=== PATIENT | female | born 1955 | race Caucasian/White ===

== ENCOUNTER 2018-03-09 05:52 | Emergency (ER) | payer OTHER ==
[2018-03-09 06:09] VITALS: BMI 27.4
--- NOTE | 2018-03-09 07:10 | PDOC ---
History of Present Illness - General History Source: Patient Exam Limitations: No Limitations - History of Present Illness Initial Comments: 03/09/18 07:36 The patient is a 62 y.o. F with a significant past medical history of hyperlipidemia and spinal stenosis, who presents with one week of intermittent left flank and left upper quadrant pain. She states the pain initiates near her left flank and radiates to her left upper to middle quadrant. She reports the pain as a burning sensation. She reports noticing exacerbation of pain in the morning after eating oatmeal. She states she also had diarrhea for about 2 days , but states the stool is soft but formed today when compared to her loose stool yesterday. She reports having a normal colonoscopy about 2 weeks ago. She also states her daily diet is bland with having eaten only mashed potatoes for dinner last night. Secondarily, she states she has had UTIs in the past which presented as similar burning to her upper abdominal quadrants, but denies any current urinary symptoms. She denies chest pain, shortness of breath, headache and dizziness. She denies fever, chills, nausea, vomit, and constipation. She denies dysuria, frequency, urgency and hematuria. Allergies: meloxicam Past surgical history: none Social history: denies ETOH and tobacco use. PCP - Dr. Gray <Kari Shane - Last Filed: 03/09/18 08:00> <Hieu Vincent - Last Filed: 03/09/18 10:55> - General Chief Complaint: Pain Stated Complaint: ABD PAIN Time Seen by Provider: 03/09/18 07:10 Past History <Kari Shane - Last Filed: 03/09/18 08:00> - Past Medical History COPD: No Other medical history: Chronic back pain - Suicide/Smoking/Psychosocial Hx Smoking History: Never smoked Have you smoked in the past 12 months: No Information on smoking cessation initiated: No Hx Alcohol Use: No Drug/Substance Use Hx: No Substance Use Type: None <Hieu Vincent - Last Filed: 03/09/18 10:55> - Past Medical History Allergies/Adverse Reactions: Allergies Allergy/AdvReac Type Severity Reaction Status Date / Time meloxicam Allergy Verified 03/09/18 06:05 shellfish derived Allergy Verified 03/09/18 06:05 Home Medications: Ambulatory Orders Aspirin 81 mg PO DAILY 03/09/18 Review of Systems - Review of Systems Able to Perform ROS?: Yes Comments:: 03/09/18 07:50 CONSTITUTIONAL: No fever, no chills, no fatigue EYES: No visual changes ENT: No ear pain, no sore throat CARDIOVASCULAR: No chest pain, no palpitations RESPIRATORY: No cough, no SOB GI: (+) left upper abdominal pain, loose stool, no nausea, no vomiting, no constipation GENITOURINARY: No dysuria, no frequency, no hematuria MUSKULOSKELETAL: No backpain, no joint pain, no myalgias SKIN: No rash NEURO: No headache <Kari Shane - Last Filed: 03/09/18 08:00> *Physical Exam - Vital Signs Last Vital Signs Temp Pulse Resp BP Pulse Ox 97.6 F 102 H 18 144/75 98 03/09/18 06:05 03/09/18 06:05 03/09/18 06:05 03/09/18 06:05 03/09/18 06:05 - Physical Exam Comments: 03/09/18 07:50 CONSTITUTIONAL: Well-appearing; well-nourished; in no apparent distress HEAD: Normocephalic; atraumatic EYES: PERRL; EOM intact ENMT: External appears normal; normal oropharynx NECK: Supple; non-tender; no cervical lymphadenopathy CARD: Normal S1, S2; no murmurs, rubs, or gallops RESP: Normal chest excursion with respiration; breath sounds clear and equal bilaterally; no wheezes, rhonchi, or rales ABD: (+)LUQ tenderness on plapation. No CVA tenderness bilaterally. Soft, non- distended; no palpable organomegaly, no palpable hernias EXT: Normal ROM in all four extremities; non-tender to palpation; distal pulses intact SKIN: Warm, dry, no rash NEURO: No focal neurological deficiencies. <Kari Shane - Last Filed: 03/09/18 08:00> - Vital Signs Last Vital Signs Temp Pulse Resp BP Pulse Ox 97.6 F 102 H 18 144/75 98 03/09/18 06:05 03/09/18 06:05 03/09/18 06:05 03/09/18 06:05 03/09/18 06:05 <Hieu Vincent - Last Filed: 03/09/18 10:55> Heart Score/ECG Review - History History: Slightly suspicious - Electrocardiogram EKG: Normal - Age Age: 45-65 - Risk Factors Risk Factors Heart Score: Yes Hx Hypercholesterolemia Based on the list above the patient has:: 1-2 risk factors - Troponin Troponin: </= normal limit - Score Heart Score - Total: 2 - ECG Intrepretation Comment:: 03/09/18 10:51 82, nsr, axis-nl, axis-nl, no st-t abn, joy <Hieu Vincent - Last Filed: 03/09/18 10:55> ED Treatment Course - LABORATORY CBC & Chemistry Diagram: 03/09/18 07:41 03/09/18 07:41 <Kari Shane - Last Filed: 03/09/18 08:00> - LABORATORY CBC & Chemistry Diagram: 03/09/18 07:41 03/09/18 07:41 <Hieu Vincent - Last Filed: 03/09/18 10:55> Medical Decision Making - Medical Decision Making 03/09/18 08:30 Patient is a 62-year-old female with history of hypercholesterolemia and lumbar stenosis who presents with atraumatic left upper quadrant pain/burning. Differential diagnoses includes gastritis versus pancreatitis versus ACS versus nephrolithiasis. We'll obtain CBC/CMP/lipase/UA. We'll administer GI cocktail. EKG shows no evidence of acute ischemia, minimal ST segment depressions of less than 1 mm are present in V6 only (unclear clinical significance). Will reassess. 03/09/18 08:46 Patient with resolved pain. Exam reveals no focal tenderness. Will obtain repeat cardiac enzymes at 2 hours with repeat EKG. If negative, will discharge with outpatient follow-up. 03/09/18 10:54 repeat ekg is wnl. 2nd set of cardiac enzymes is negative. acs/pe/ aortic disection are highly unlikly. will d/c with gi and pmd f/u. <Hieu Vincent - Last Filed: 03/09/18 10:55> *DC/Admit/Observation/Transfer - Attestations Scribe Attestion: 03/09/18 07:51 Documentation prepared by Kari Shane, acting as medical records director for Hieu Vincent MD <Kari Shane - Last Filed: 03/09/18 08:00> - Attestations Physician Attestion: 03/09/18 08:30 The documentation was prepared by the scribe under my direct supervision. I have reviewed the documentation which correctly represents the findings, medical decision-making and critical action taken by me. <Hieu Vincent - Last Filed: 03/09/18 10:55> Diagnosis at time of Disposition: Abdominal pain Qualifiers: Abdominal location: left upper quadrant Qualified Code(s): R10.12 - Left upper quadrant pain - Discharge Dispostion Disposition: HOME Condition at time of disposition: Stable - Referrals Referrals: Jalyn Parrish [Primary Care Provider] - - Patient Instructions Printed Discharge Instructions: DI for Abdominal Pain-Adult Additional Instructions: Take Pepcid-20 were grams twice daily for the next 5 days. Follow-up with GI and primary care physician. Return immediately for chest pain or worsening symptoms. - Post Discharge Activity
[2018-03-09] MEDS ORDERED: RANITIDINE HCL 150 MG TABLET (FP) PO ONE (07:34)
[2018-03-09] MEDS ORDERED: MAG HYDROX/AL HYDROX/SIMETH -MYLANTA- ORAL SUSPENSION PO ONE (07:34)
[2018-03-09 07:44] LABS: URINE APPEARANCE CLEAR; URINE BILIRUBIN NEGATIVE (<2.0 mg/dL); URINE BLOOD 1+ (NEGATIVE); URINE COLOR YELLOW; URINE GLUCOSE (UA) NEGATIVE (NEGATIVE); URINE KETONE NEGATIVE (NEGATIVE); URINE LEUK ESTERASE NEGATIVE (NEGATIVE); URINE NITRITE NEGATIVE (NEGATIVE); URINE PROTEIN NEGATIVE (NEGATIVE); URINE UROBILINOGEN NEGATIVE mg/dL (0.2-1.0)
[2018-03-09] MEDS ORDERED: RANITIDINE HCL 150 MG TABLET (FP) ONE (07:49)
[2018-03-09] MEDS ORDERED: MAG HYDROX/AL HYDROX/SIMETH 30 ML UNIT-DOSE CUP ONE (07:49)
[2018-03-09 07:54] LABS: EPI CELLS RARE /HPF (FEW); URINE BACTERIA RARE /hpf (NONE SEEN); URINE HYALINE CAST 1 /lpf; URINE MUCUS RARE
[2018-03-09 07:55] LABS: BASO % 0.2 % (0-2.0); EOS % 0.6 % (0-4.5); HEMATOCRIT 36.6 % (32.4-45.2); HEMOGLOBIN 12.7 GM/dL (10.7-15.3); LYMPH % 4.7 % (8-40); MCHC 34.7 g/dl (32.0-36.0); MEAN CELL VOLUME 86.4 fl (80-96); MEAN PLT VOLUME 8.4 fl (7.5-11.1); MONO % 5.5 % (3.8-10.2); PLATELET COUNT 187 K/MM3 (134-434); RBC 4.23 M/mm3 (3.60-5.2); RDW 12.5 % (11.6-15.6); WHITE BLOOD COUNT 9.6 K/mm3 (4.0-10.0)
[2018-03-09 08:23] LABS: ALBUMIN 3.6 g/dl (3.4-5.0); ANION GAP 8 (8-16); BILIRUBIN,TOTAL 0.7 mg/dL (0.2-1.0); BLOOD UREA NITROGEN 18 mg/dL (7-18); CALCIUM 8.4 mg/dL (8.5-10.1); CHLORIDE 109 mmol/L (98-107); CO2 23 mmol/L (21-32); CREATININE 0.5 mg/dL (0.55-1.02); GLUCOSE,RANDOM 107 mg/dL (74-106); LIPASE 83 U/L (73-393); POTASSIUM 3.8 mmol/L (3.5-5.1); SGOT/AST 44 U/L (15-37); SGPT/ALT 42 U/L (12-78); SODIUM 140 mmol/L (136-145); TOT PROT 6.7 g/dl (6.4-8.2)
[2018-03-09 08:26] LABS: ALK PHOS 76 U/L (45-117)
--- NOTE | 2018-03-09 11:44 | EKG ---
Test Reason : Blood Pressure : / mmHG Vent. Rate : 091 BPM Atrial Rate : 091 BPM P-R Int : 184 ms QRS Dur : 092 ms QT Int : 344 ms P-R-T Axes : 045 029 006 degrees QTc Int : 423 ms SINUS RHYTHM WITH OCCASIONAL PREMATURE VENTRICULAR COMPLEXES POSSIBLE LEFT ATRIAL ENLARGEMENT NONSPECIFIC ST ABNORMALITY ABNORMAL ECG WHEN COMPARED WITH ECG OF 14-AUG-2015 19:55, PREMATURE VENTRICULAR COMPLEXES ARE NOW PRESENT T WAVE INVERSION NOW EVIDENT IN INFERIOR LEADS Confirmed by HOPE BOCANEGRA, CHERIE ([id number]) on 03/09/2018 11:44:38 AM Referred By: Confirmed By:CHERIE ARNETT MD
--- NOTE | 2018-03-09 11:46 | EKG ---
Test Reason : Blood Pressure : / mmHG Vent. Rate : 082 BPM Atrial Rate : 082 BPM P-R Int : 194 ms QRS Dur : 086 ms QT Int : 390 ms P-R-T Axes : 044 011 021 degrees QTc Int : 455 ms NORMAL SINUS RHYTHM POSSIBLE LEFT ATRIAL ENLARGEMENT BORDERLINE ECG WHEN COMPARED WITH ECG OF 09-MAR-2018 07:19, PREMATURE VENTRICULAR COMPLEXES ARE NO LONGER PRESENT Confirmed by HOPE BOCANEGRA, CHERIE ([id number]) on 03/09/2018 11:45:33 AM Referred By: Confirmed By:CHERIE ARNETT MD
[2018-03-09 12:49] VITALS: BP 133/65; PULSE 98; TEMP 98.2
== END 2018-03-09 12:50 | disposition home or self-care (01) ==
LOC: JER 05:52
DX: R10.12 Left upper quadrant pain (principal); E78.00 Pure hypercholesterolemia, unspecified
CPT/HCPCS: 36415; 80053; 81003; 81015; 82550; 83690; 84484; 85025; 87086; 93005; 93010; 99284-25

== ENCOUNTER 2018-07-26 19:04 | Emergency (ER) | payer OTHER ==
[2018-07-26 19:13] VITALS: TEMP 98.8; BMI 28.4
--- NOTE | 2018-07-26 19:23 | PDOC ---
Rapid Medical Evaluation Chief Complaint: Pain, Acute Medical Evaluation: Allergies Allergy/AdvReac Type Severity Reaction Status Date / Time shellfish derived Allergy Verified 07/26/18 19:14 Vital Signs Temp Pulse Resp BP Pulse Ox 98.8 F 90 16 144/86 100 07/26/18 19:07 07/26/18 19:07 07/26/18 19:07 07/26/18 19:07 07/26/18 19:07 07/26/18 19:20 I have performed a brief in-person evaluation of this patient. The patient presents with a chief complaint of: R flank pain since today, h/o renal stones, sent by PCP Pertinent physical exam findings: + R CVA tenderness, abd soft, ND I have ordered the following: labs, UA The patient will proceed to the ED for further evaluation. Discharge Disposition - Diagnosis Flank pain - Referrals Referrals: Jalyn Parrish [Primary Care Provider] - - Patient Instructions - Post Discharge Activity
[2018-07-26 21:41] LABS: HEMATOCRIT 40.2 % (32.4-45.2); HEMOGLOBIN 13.7 GM/dL (10.7-15.3); MCH 29.7 pg (25.7-33.7); MCHC 34.2 g/dl (32.0-36.0); MEAN CELL VOLUME 86.7 fl (80-96); MEAN PLT VOLUME 8.2 fl (7.5-11.1); PLATELET COUNT 290 K/MM3 (134-434); RBC 4.63 M/mm3 (3.60-5.2); RDW 12.8 % (11.6-15.6); WHITE BLOOD COUNT 7.9 K/mm3 (4.0-10.0)
[2018-07-26 21:43] LABS: URINE APPEARANCE CLEAR; URINE BILIRUBIN NEGATIVE (<2.0 mg/dL); URINE COLOR STRAW; URINE GLUCOSE (UA) NEGATIVE (NEGATIVE); URINE KETONE NEGATIVE (NEGATIVE); URINE NITRITE NEGATIVE (NEGATIVE); URINE PROTEIN NEGATIVE (NEGATIVE); URINE UROBILINOGEN NEGATIVE mg/dL (0.2-1.0)
[2018-07-26 21:49] LABS: URINE LEUK ESTERASE 1+ (NEGATIVE)
[2018-07-26 22:05] LABS: ANION GAP 10 MMOL/L (8-16); BLOOD UREA NITROGEN 23 mg/dL (7-18); CALCIUM 9.5 mg/dL (8.5-10.1); CHLORIDE 105 mmol/L (98-107); CO2 26 mmol/L (21-32); CREATININE 0.7 mg/dL (0.55-1.02); GLUCOSE,RANDOM 103 mg/dL (74-106); POTASSIUM 4.1 mmol/L (3.5-5.1); SODIUM 141 mmol/L (136-145)
[2018-07-26] MEDS ORDERED: KETOROLAC TROMETHAMINE 15 MG/ML VIAL IVPUSH ONE (22:49)
--- NOTE | 2018-07-26 22:55 | PDOC ---
History of Present Illness <Toña Nazario - Last Filed: 07/26/18 23:34> - General History Source: Patient Exam Limitations: No Limitations - History of Present Illness Initial Comments: 07/26/18 23:35 The patient is a 60 year old female, with a significant past medical history of sciatica, H. pylori, UTIs, hypercholesterolemia, anxiety, and Kidney stones, who presents to the emergency department with a couple of days with right flank pain. She states she went to an urgent care earlier today where her urine was tested which was suggestive of kidney stones. She states the pain radiates from her right flank to her right groin. She states this feels just like her prior kidney stone. She states she was nauseous in route to the ED but is unsure if the nausea was from pain or anxiety. She denies any numbness/weakness. She denies chest pain, shortness of breath and headache. She denies fever, chills, vomit, diarrhea and constipation. She denies dysuria, frequency, urgency and hematuria. Allergies: Meloxicam, shellfish Past surgical history: Hysterectomy, tonsillitis, right adductor debridement? May 2018 Social history: She denies alcohol, tobacco and drug use. PCP - Dr. Jalyn Parrish <Kari Shane - Last Filed: 07/26/18 23:36> - General Chief Complaint: Pain, Acute Stated Complaint: KIDNEY STONE Time Seen by Provider: 07/26/18 21:25 Past History - Past Medical History COPD: No Hypercholesterolemia: Yes Psychiatric Problems: Yes (anxiety) - Immunization History Immunization Up to Date: Yes - Suicide/Smoking/Psychosocial Hx Smoking History: Never smoked Have you smoked in the past 12 months: No Information on smoking cessation initiated: No Hx Alcohol Use: No Drug/Substance Use Hx: No Substance Use Type: None <Toña Nazario - Last Filed: 07/26/18 23:34> <Kari Shane - Last Filed: 07/26/18 23:36> - Past Medical History Allergies/Adverse Reactions: Allergies Allergy/AdvReac Type Severity Reaction Status Date / Time shellfish derived Allergy Verified 07/26/18 19:14 Home Medications: Ambulatory Orders Aspirin 81 mg PO DAILY 03/09/18 Sulfamethoxazole/Trimethoprim [Bactrim Ds Tablet] 1 each PO BID #10 tablet 07/26 Review of Systems - Review of Systems Able to Perform ROS?: Yes Comments:: 07/26/18 23:35 CONSTITUTIONAL: Absent: fever, no chills, no fatigue EYES: Absent: visual changes ENT: Absent: ear pain, no sore throat CARDIOVASCULAR: Absent: chest pain, no palpitations RESPIRATORY: Absent: cough, no SOB GI: Absent: abdominal pain, no nausea, no vomiting, no constipation, no diarrhea GENITOURINARY: Absent: dysuria, no frequency, no hematuria MUSCULOSKELETAL: (+) right flank pain. Absent: back pain, no arthralgia, no myalgia SKIN: Absent: rash NEURO: Absent: headache <Kari Shane - Last Filed: 07/26/18 23:36> *Physical Exam - Vital Signs Last Vital Signs Temp Pulse Resp BP Pulse Ox 98.8 F 90 16 144/86 100 07/26/18 19:07 07/26/18 19:07 07/26/18 19:07 07/26/18 19:07 07/26/18 19:07 <Toña Nazario - Last Filed: 07/26/18 23:34> - Vital Signs Last Vital Signs Temp Pulse Resp BP Pulse Ox 98.8 F 90 16 144/86 100 07/26/18 19:07 07/26/18 19:07 07/26/18 19:07 07/26/18 19:07 07/26/18 19:07 - Physical Exam Comments: 07/26/18 23:36 GENERAL: Well-appearing, well-nourished. No apparent distress. HEENT: Normocephalic, atraumatic. PERRL, EOM intact. CARDIOVASCULAR: Normal S1, S2. Regular rate and rhythm. PULMONARY: Clear to auscultation bilaterally. ABDOMEN: Soft, non-distended, non-tender. EXTREMITIES: Normal ROM in all four extremities. No gross deformities. MSK: (+) Right CVA ttp SKIN: Warm, dry. No rash NEUROLOGICAL: No focal neurological deficits. <Kari Shane - Last Filed: 07/26/18 23:36> ED Treatment Course - LABORATORY CBC & Chemistry Diagram: 07/26/18 21:25 07/26/18 21:25 - ADDITIONAL ORDERS Additional order review: Laboratory Results 07/26/18 07/26/18 21:25 21:25 Sodium 141 Potassium 4.1 Chloride 105 Carbon Dioxide 26 Anion Gap 10 BUN 23 H Creatinine 0.7 Creat Clearance w eGFR > 60 Random Glucose 103 Calcium 9.5 Urine Color Straw Urine Appearance Clear Urine pH 6.0 Ur Specific Delta 1.008 Urine Protein Negative Urine Glucose (UA) Negative Urine Ketones Negative Urine Blood 1+ H Urine Nitrite Negative Urine Bilirubin Negative Urine Urobilinogen Negative Ur Leukocyte Esterase 1+ H Urine WBC (Auto) 4 Urine RBC (Auto) <1 07/26/18 21:25 RBC 4.63 MCV 86.7 MCHC 34.2 RDW 12.8 MPV 8.2 - RADIOLOGY Radiology Studies Ordered: Category Date Time Status ABDOMEN & PELVIS CT W/O CONTR [CT] Stat CT Scan 07/26/18 22:07 Completed <Toña Nazario - Last Filed: 07/26/18 23:34> - LABORATORY CBC & Chemistry Diagram: 07/26/18 21:25 07/26/18 21:25 - ADDITIONAL ORDERS Additional order review: Laboratory Results 07/26/18 07/26/18 21:25 21:25 Sodium 141 Potassium 4.1 Chloride 105 Carbon Dioxide 26 Anion Gap 10 BUN 23 H Creatinine 0.7 Creat Clearance w eGFR > 60 Random Glucose 103 Calcium 9.5 Urine Color Straw Urine Appearance Clear Urine pH 6.0 Ur Specific Delta 1.008 Urine Protein Negative Urine Glucose (UA) Negative Urine Ketones Negative Urine Blood 1+ H Urine Nitrite Negative Urine Bilirubin Negative Urine Urobilinogen Negative Ur Leukocyte Esterase 1+ H Urine WBC (Auto) 4 Urine RBC (Auto) <1 07/26/18 21:25 RBC 4.63 MCV 86.7 MCHC 34.2 RDW 12.8 MPV 8.2 - Medications Given in the ED: ED Medications Discontinued Medications Generic Name Dose Route Start Last Admin Trade Name Freq PRN Reason Stop Dose Admin Ketorolac Tromethamine 15 mg 07/26/18 22:49 07/26/18 23:08 Toradol Injection - IVPUSH 07/26/18 22:50 15 mg ONCE ONE Administration <Kari Shane - Last Filed: 07/26/18 23:36> Medical Decision Making - Medical Decision Making 07/26/18 22:59 CT scan abdomen and pelvis without contrast does not show any acute pathology. There is no evidence of any kidney stones, ureteral obstruction, no masses, no fluid obstruction, no fluid collections and no unusual lymphadenopathy UA shows 4 WBCs and + blood Patient denies fever or chills or vomiting. She has no shortness of breath or chest pain. The pain is low right sided below her hip and above her buttocks 07/26/18 23:01 -she has no dizziness,no shortness of breath and no scapular or arm pain 07/26/18 23:01 imp possibly passed a stone, mild cystitis plan placed on antibiotics,d/c home <Toña Nazario - Last Filed: 07/26/18 23:34> *DC/Admit/Observation/Transfer <Toña Nazario - Last Filed: 07/26/18 23:34> - Attestations Scribe Attestion: 07/26/18 23:36 Documentation prepared by Kari Shane, acting as medical coding manager for Toña Nazario MD <Kari Shane - Last Filed: 07/26/18 23:36> Diagnosis at time of Disposition: Flank pain UTI (urinary tract infection) Qualifiers: Urinary tract infection type: site unspecified Hematuria presence: without hematuria Qualified Code(s): N39.0 - Urinary tract infection, site not specified - Discharge Dispostion Disposition: HOME Condition at time of disposition: Stable - Prescriptions Prescriptions: Sulfamethoxazole/Trimethoprim [Bactrim Ds Tablet] 1 each PO BID #10 tablet - Referrals Referrals: Jalyn Parrish [Primary Care Provider] - - Patient Instructions Printed Discharge Instructions: DI for Urinary Tract Infection (UTI), DI for Flank Pain Additional Instructions: 1-please followup with your doctor this week 2-picker tender your antibiotics and take them as directed 3-return for worsening symptoms - Post Discharge Activity
[2018-07-26] MEDS ORDERED: KETOROLAC TROMETHAMINE 15 MG/ML VIAL ONE (23:04)
[2018-07-26 23:37] VITALS: BP 138/76; PULSE 78
== END 2018-07-26 23:37 | disposition home or self-care (01) ==
LOC: JER 19:04
PROC: 3E0233Z Introduction of Anti-inflammatory into Muscle, Percutaneous Approach (ICD-10-PCS; principal; 2018-07-26)
DX: R10.31 Right lower quadrant pain (principal)
CPT/HCPCS: 36415; 74176-TC; 80048; 81003; 81015; 85027; 99282-25

== ENCOUNTER 2018-09-23 09:22 | Emergency (ER) | payer OTHER ==
--- NOTE | 2018-09-23 09:35 | PDOC ---
History of Present Illness - General Chief Complaint: Constipation Stated Complaint: CONSTIPATION Time Seen by Provider: 09/23/18 09:32 History Source: Patient Exam Limitations: No Limitations - History of Present Illness Initial Comments: 09/23/18 09:33 PMHX: as in HPI PSHX: see below Meds: see below Allergies: shellfish Tob: none Etoh: none Rec drugs: none Past History - Past Medical History Allergies/Adverse Reactions: Allergies Allergy/AdvReac Type Severity Reaction Status Date / Time shellfish derived Allergy Verified 07/26/18 19:14 Home Medications: Ambulatory Orders Acetaminophen [Tylenol Extra Strength] 1,000 mg PO DAILY PRN 09/23/18 Bisacodyl [Dulcolax] 10 mg PO ONCE 09/23/18 Linaclotide [Linzess] 145 mcg PO DAILY PRN 09/23/18 Sodium Phosphate,Young-Dibasic [Fleet Enema] 133 ml RC ONCE 09/23/18 COPD: No HTN: Yes Hypercholesterolemia: Yes Psychiatric Problems: Yes (anxiety) - Immunization History Immunization Up to Date: Yes - Suicide/Smoking/Psychosocial Hx Smoking History: Never smoked Have you smoked in the past 12 months: No Hx Alcohol Use: No Drug/Substance Use Hx: No Substance Use Type: None *Physical Exam - Physical Exam Comments: 09/23/18 09:34 GENERAL: Awake, alert, and fully oriented, in no acute distress HEAD: No signs of trauma, normocephalic, atraumatic EYES: PERRLA, EOMI, sclera anicteric, conjunctiva clear ENT: Auricles normal inspection, hearing grossly normal, nares patent, oropharynx clear without exudates. Moist mucosa NECK: Normal ROM, supple, no lymphadenopathy, JVD, or masses LUNGS: No distress, speaks full sentences, clear to auscultation bilaterally HEART: Regular rate and rhythm, normal S1 and S2, no murmurs, rubs or gallops, peripheral pulses normal and equal bilaterally. ABDOMEN: Soft, nontender, normoactive bowel sounds. No guarding, no rebound. No masses EXTREMITIES : Normal inspection, Normal range of motion, no edema. No clubbing or cyanosis. NEUROLOGICAL: Cranial nerves II through XII grossly intact. Normal speech, normal gait, no focal sensorimotor deficits SKIN: Warm, Dry, normal turgor, no rashes or lesions noted *DC/Admit/Observation/Transfer - Discharge Dispostion Condition at time of disposition: Good - Referrals Referrals: Jalyn Parrish [Primary Care Provider] - - Patient Instructions - Post Discharge Activity
[2018-09-23 09:41] VITALS: BP 146/95; PULSE 89; TEMP 98.1; BMI 26.9
--- NOTE | 2018-09-23 10:10 | PDOC ---
History of Present Illness - General Chief Complaint: Constipation Stated Complaint: CONSTIPATION Time Seen by Provider: 09/23/18 09:32 History Source: Patient Exam Limitations: No Limitations - History of Present Illness Initial Comments: 09/23/18 10:04 63 yo F with h/;o prior thyroid disease, nodule, here today c/o 1 month of constipation. take miralax twice daily . today had small bowel movement after taking dulcolax. has loose watery stool following here in ed after arriving. follows with dr. Landers [facility]1 yr ago had normal colonoscopy. also c/ o hemorrhoids. no fc no abd pain. no other comlaints. Past History - Past Medical History Allergies/Adverse Reactions: Allergies Allergy/AdvReac Type Severity Reaction Status Date / Time shellfish derived Allergy Verified 07/26/18 19:14 Home Medications: Ambulatory Orders Acetaminophen [Tylenol Extra Strength] 1,000 mg PO DAILY PRN 09/23/18 Bisacodyl [Dulcolax] 10 mg PO ONCE 09/23/18 Linaclotide [Linzess] 145 mcg PO DAILY PRN 09/23/18 Sodium Phosphate,[place]-Dibasic [Fleet Enema] 133 ml RC ONCE 09/23/18 COPD: No GI Disorders: Yes HTN: Yes Hypercholesterolemia: Yes Psychiatric Problems: Yes (anxiety) Other medical history: TINNITUS, LUMBAR STENOSIS - Immunization History Immunization Up to Date: Yes - Suicide/Smoking/Psychosocial Hx Smoking History: Never smoked Have you smoked in the past 12 months: No Hx Alcohol Use: No Drug/Substance Use Hx: No Substance Use Type: None Review of Systems - Review of Systems Constitutional: No: Chills, Diaphoresis, Weight Stable Respiratory: No: Cough, Orthopnea Cardiac (ROS): No: Chest Pain, Edema ABD/GI: Yes: Constipated. No: Abdominal Distended : No: Burning, Dysuria, Discharge Neurological: No: Headache Endocrine: No: Excessive Sweating Hematologic/Lymphatic: No: Anemia All Other Systems: Reviewed and Negative *Physical Exam - Vital Signs Last Vital Signs Temp Pulse Resp BP Pulse Ox 98.1 F 89 16 146/95 98 09/23/18 09:23 09/23/18 09:23 09/23/18 09:23 09/23/18 09:23 09/23/18 09:23 - Physical Exam Comments: 09/23/18 10:06 awake alert lungs clear bilaterally heart rrr no mrg abd soft nt nd. abd soft nt nd. no palp masses. rectal, no large stool in vault. palp internal nonthrombosed hemorrhoid. skin warm and dry. no rash. Medical Decision Making - Medical Decision Making 09/23/18 10:[address] pt currently with large bm in ed. will add tsh and labs r/o electrolyte dysfuction. likely needs outpt followup with gi. and appears constipation resolved with bm in ed. offered enema, pt declined. *DC/Admit/Observation/Transfer Diagnosis at time of Disposition: Constipation - Discharge Dispostion Disposition: HOME Condition at time of disposition: Improved - Referrals Referrals: Jalyn Parrish [Primary Care Provider] - - Patient Instructions Printed Discharge Instructions: Constipation Additional Instructions: you should eat plenty of vegetable and get daily exercise as this can help with constipation. drink plenty of liquids. follow up with DR Weinberg, your cleaner furniture. call to schedule. you should also follow up with your primary Doctor Dr. Parrish. return for any problems or concerns. you can use over the counter creams for your hemorrhoids such as preparation H, and soak in a sitz bath to ease itching or discomfort. you can also incrase your miralax to three times daily. - Post Discharge Activity
[2018-09-23 10:29] LABS: BASO % 1.1 % (0-2.0); EOS % 0.8 % (0-4.5); HEMATOCRIT 40.9 % (32.4-45.2); HEMOGLOBIN 13.5 GM/dl (10.7-15.3); LYMPH % 29.4 % (8-40); MCH 29.1 pg (25.7-33.7); MEAN CELL VOLUME 88.4 fl (80-96); MEAN PLT VOLUME 8.2 fl (7.5-11.1); MONO % 7.6 % (3.8-10.2); NEUT % 61.1 % (42.8-82.8); PLATELET COUNT 282 K/MM3 (134-434); RBC 4.63 M/mm3 (3.60-5.2); RDW 11.9 % (11.6-15.6); WHITE BLOOD COUNT 3.6 K/mm3 (4.0-10.8)
[2018-09-23 10:55] LABS: ALBUMIN 4.4 g/dl (3.5-5.0); ALK PHOS 48 U/L (32-92); ANION GAP 7 MMOL/L (8-16); BILIRUBIN,TOTAL 0.7 mg/dl (0.2-1.0); BLOOD UREA NITROGEN 11 mg/dl (7-18); CALCIUM 9.6 mg/dl (8.4-10.2); CHLORIDE 106 mmol/L (98-107); CO2 25 mmol/L (22-28); CREATININE 0.6 mg/dl (0.6-1.3); GLUCOSE,RANDOM 115 mg/dl (74-106); POTASSIUM 4.4 mmol/L (3.5-5.1); SGOT/AST 24 U/L (10-42); SGPT/ALT 25 U/L (10-40); SODIUM 138 mmol/L (136-145); TOT PROT 7.3 g/dl (6.4-8.3)
== END 2018-09-23 11:14 | disposition home or self-care (01) ==
LOC: FER 09:22
DX: K59.00 Constipation, unspecified (principal); E07.9 Disorder of thyroid, unspecified; I10 Essential (primary) hypertension; F41.9 Anxiety disorder, unspecified; E78.00 Pure hypercholesterolemia, unspecified
CPT/HCPCS: 36415; 80053; 84443; 85025; 99282-25

== ENCOUNTER 2018-10-21 14:11 | Emergency (ER) | payer OTHER ==
[2018-10-21 14:39] VITALS: TEMP 98.3; BMI 26.4
--- NOTE | 2018-10-21 14:40 | PDOC ---
Rapid Medical Evaluation Time Seen by Provider: 10/21/18 14:37 Medical Evaluation: Allergies Allergy/AdvReac Type Severity Reaction Status Date / Time shellfish derived Allergy Verified 10/21/18 14:35 10/21/18 14:37 I have performed a brief in-person evaluation of this patient. The patient presents with a chief complaint of:Worsening RUQ pain x 2 weeks w/ nausea. Denies pmhx but currently being w/u for possible "tumor in my right ear ". Pertinent physical exam findings: Stable w/ +ttp to RUQ I have ordered the following:labs The patient will proceed to the ED for further evaluation. Discharge Disposition - Diagnosis RUQ pain - Referrals - Patient Instructions - Post Discharge Activity
--- NOTE | 2018-10-21 15:04 | PDOC ---
History of Present Illness - General Chief Complaint: Pain, Acute Stated Complaint: RT SIDE PAIN Time Seen by Provider: 10/21/18 14:37 - History of Present Illness Initial Comments: 63 year old female with PMH of lumbar stenosis presenting with acute on chronic right flank/ upper quadrant pain for the past three weeks that got much worse last night. Patient states that she has had this pain for three weeks and originally attributed it to the lumbar stenosis but started to realize that it seems more abdominal. Admits to nausea, and worsening pain with food but denies vomiting, diarrhea, constipation, chest pain, SOB, or other symptoms. 10/21/18 15:42 Past History - Past Medical History Allergies/Adverse Reactions: Allergies Allergy/AdvReac Type Severity Reaction Status Date / Time shellfish derived Allergy Verified 10/21/18 14:35 Home Medications: Ambulatory Orders Mag Hydrox/Al Hydrox/Simeth [Mylanta Suspension -] 30 ml PO Q6H #1 bottle COPD: No GI Disorders: Yes HTN: Yes Hypercholesterolemia: Yes Psychiatric Problems: Yes (anxiety) Other medical history: chr back pain, - Immunization History Immunization Up to Date: Yes - Suicide/Smoking/Psychosocial Hx Smoking History: Never smoked Have you smoked in the past 12 months: No Hx Alcohol Use: No Drug/Substance Use Hx: No Substance Use Type: None Review of Systems - Review of Systems Constitutional: No: Chills, Diaphoresis, Fever HEENTM: No: Blurred Vision, Tearing, Other Respiratory: No: Cough, Orthopnea Cardiac (ROS): No: Chest Pain, Edema, Lightheadedness ABD/GI: Yes: Constipated, Nausea, Poor Appetite. No: Diarrhea, Vomiting : No: Burning, Dysuria, Discharge Musculoskeletal: Yes: Back Pain. No: Joint Pain Integumentary: No: Bruising, Erythema, Flushing, Lesions Neurological: No: Headache, Numbness, Paresthesia Psychiatric: No: Anxiety, Depression Endocrine: No: Excessive Sweating, Flushing Hematologic/Lymphatic: No: Anemia, Blood Clots, Easy Bleeding *Physical Exam - Vital Signs Last Vital Signs Temp Pulse Resp BP Pulse Ox 98.3 F 80 18 147/79 99 10/21/18 14:35 10/21/18 14:35 10/21/18 14:35 10/21/18 14:35 10/21/18 14:35 - Physical Exam General Appearance: Yes: Nourished, Appropriately Dressed. No: Apparent Distress HEENT: positive: EOMI, HOLLIS, Normal ENT Inspection, Normal Voice Neck: positive: Trachea midline, Normal Thyroid, Supple. negative: Tender, Rigid Respiratory/Chest: positive: Lungs Clear, Normal Breath Sounds. negative: Chest Tender, Respiratory Distress, Accessory Muscle Use Cardiovascular: positive: Regular Rhythm, Regular Rate Gastrointestinal/Abdominal: positive: Normal Bowel Sounds, Tender (epgstric and ruq tenderness), Flat, Soft Lymphatic: negative: Adenopathy, Tenderness Musculoskeletal: positive: Normal Inspection. negative: Decreased Range of Motion Extremity: positive: Normal Capillary Refill, Normal Inspection, Normal Range of Motion. negative: Tender Integumentary: positive: Normal Color, Dry, Warm Neurologic: positive: Fully Oriented, Alert, Normal Mood/Affect, Normal Response , Motor Strength 5/5 Moderate Sedation - Procedure Monitoring Vital Signs: Procedure Monitoring Vital Signs Temperature 98.3 F 10/21/18 14:35 Pulse Rate 80 10/21/18 14:35 Respiratory Rate 18 10/21/18 14:35 Blood Pressure 147/79 10/21/18 14:35 O2 Sat by Pulse Oximetry (%) 99 10/21/18 14:35 ED Treatment Course - LABORATORY CBC & Chemistry Diagram: 10/21/18 15:40 10/21/18 15:40 Medical Decision Making - Medical Decision Making 63 year old with ruq pain, + sonographic menendez's on bedside US but no obvious stones seen. Labs WNL and official RUQ negative for stones. Patient's pain was relieved with ibuprofen. She will be DC'd home with PCP follow up. 10/21/18 16:44 *DC/Admit/Observation/Transfer Diagnosis at time of Disposition: RUQ pain - Discharge Dispostion Disposition: HOME Condition at time of disposition: Improved Decision to Admit order: No - Prescriptions Prescriptions: Mag Hydrox/Al Hydrox/Simeth [Mylanta Suspension -] 30 ml PO Q6H #1 bottle - Referrals Referrals: Jalyn Parrish [Primary Care Provider] - Micky Carias DO [Staff Physician] - - Patient Instructions Printed Discharge Instructions: DI for Abdominal Pain-Adult Additional Instructions: Please use tylenol and Maalox for your pain. please make an appointment with the GI doctor on this sheet. Please see your PCP this week. You have no stones on your ultrasound in your gallbladder. Please return to the ED if you have new or worsening symptoms. - Post Discharge Activity
[2018-10-21] MEDS ORDERED: SODIUM CHLORIDE 0.9% 500 ML INFUS.BAG IV ONE (15:18)
--- NOTE | 2018-10-21 15:31 | PDOC ---
Attending Attestation - Resident Resident Name: Violeta Ventura - ED Attending Attestation I have performed the following: I have examined & evaluated the patient, The case was reviewed & discussed with the resident, I agree w/resident's findings & plan - [facility] HPI: 10/21/18 16:20 Ms. Therese Granda is a 63 year old female with h/o lumbar stenosis significant for RUQ and epigastric pain x 2 weeks and nausea, worse with eating (denies fatty foods or spicy intake). No vomiting or diarrhea or f/c. no urinary or respiratory sx. - Physicial Exam PE: 10/21/18 16:22 NAD, well appearing, PERRL, EOMI, MMM, nl conjunctiva, anicteric; neck supple. lungs clear, RRR, abdomen soft +RUQ and epigastric tenderness.. no rebound or guarding. THOMAS x4, no focal neuro deficits. No peripheral edema. normal color for ethnicity, WWP. - Medical Decision Making 10/21/18 16:23 See HPI for details Vital signs reviewed, wnl. Prior notes reviewed, including admissions, discharges and consultations. laboratory results and imaging reviewed, basic labs and lytes wnl, notable for normal lipase and LFTs, reassuring, doubt obstruction or GB pathology/infection ED course: given GI cocktail, analgesia and IVF. limited bedside RUQ sono neg for pericholecystic fluid or wall thickening, normal CBD on direct visualization , no definitive stones.. Pending official sono of GB/RUQ Dispo: s/o pending reeval, US and ultimate dispo, likely DC if neg 10/21/18 16:39 10/22/18 08:37
[2018-10-21] MEDS ORDERED: MAG HYDROX/AL HYDROX/SIMETH 30 ML UNIT-DOSE CUP PO ONE (15:44)
[2018-10-21] MEDS ORDERED: FAMOTIDINE 20 MG/50 ML IVPB 20 MG/50 ML MG IVPB ONE ×2 (15:44→16:24)
[2018-10-21 15:58] LABS: BASO % 0.7 % (0-2.0); EOS % 0.1 % (0-4.5); HEMATOCRIT 40.1 % (32.4-45.2); HEMOGLOBIN 13.1 GM/dL (10.7-15.3); LYMPH % 24.8 % (8-40); MCH 28.6 pg (25.7-33.7); MCHC 32.7 g/dl (32.0-36.0); MEAN CELL VOLUME 87.4 fl (80-96); MONO % 5.3 % (3.8-10.2); NEUT % 69.1 % (42.8-82.8); PLATELET COUNT 284 K/MM3 (134-434); RBC 4.59 M/mm3 (3.60-5.2); WHITE BLOOD COUNT 5.3 K/mm3 (4.0-10.0)
[2018-10-21] MEDS ORDERED: IBUPROFEN 600 MG TABLET (FP) PO ONE ×2 (15:59→16:24)
[2018-10-21] MEDS ORDERED: MAG HYDROX/AL HYDROX/SIMETH 30 ML UNIT-DOSE CUP ONE (16:24)
[2018-10-21 16:27] LABS: ALK PHOS 62 U/L (45-117); ANION GAP 8 MMOL/L (8-16); BILIRUBIN,TOTAL 0.6 mg/dL (0.2-1); BLOOD UREA NITROGEN 10 mg/dL (7-18); CALCIUM 9.3 mg/dL (8.5-10.1); CHLORIDE 106 mmol/L (98-107); CO2 25 mmol/L (21-32); CREATININE 0.5 mg/dL (0.55-1.3); GLUCOSE,RANDOM 93 mg/dL (74-106); LIPASE 105 U/L (73-393); SGOT/AST 18 U/L (15-37); SGPT/ALT 29 U/L (13-61); SODIUM 139 mmol/L (136-145); TOT PROT 7.5 g/dl (6.4-8.2)
[2018-10-21 19:03] VITALS: BP 138/72; PULSE 71
== END 2018-10-21 19:03 | disposition home or self-care (01) ==
LOC: JER 14:11
PROC: 3E033GC Introduction of Other Therapeutic Substance into Peripheral Vein, Percutaneous Approach (ICD-10-PCS; principal; 2018-10-21)
PROC: 3E0337Z Introduction of Electrolytic and Water Balance Substance into Peripheral Vein, Percutaneous Approach (ICD-10-PCS; 2018-10-21)
DX: R10.11 Right upper quadrant pain (principal); I10 Essential (primary) hypertension; F41.9 Anxiety disorder, unspecified; G89.29 Other chronic pain; E78.00 Pure hypercholesterolemia, unspecified
CPT/HCPCS: 36415; 76705-TC; 80053; 82150; 83690; 85025; 96361; 96365; 99283-25

== ENCOUNTER 2018-10-23 14:33 | Emergency (ER) | payer OTHER ==
[2018-10-23 14:42] VITALS: PULSE 100; TEMP 98.4; BMI 26.4
[2018-10-23] MEDS ORDERED: KETOROLAC TROMETHAMINE 30 MG/1 ML VIAL IM ONE (15:01)
[2018-10-23] MEDS ORDERED: KETOROLAC TROMETHAMINE 30 MG/1 ML VIAL ONE (15:06)
--- NOTE | 2018-10-23 15:10 | PDOC ---
History of Present Illness - General Chief Complaint: Pain Stated Complaint: PAIN RT SIDE NEAR RIBS Time Seen by Provider: 10/23/18 14:55 History Source: Patient - History of Present Illness Associated Symptoms: denies: chest pain (63y/o F with R flank pain X today), fever/chills Past History - Travel Traveled outside of the country in the last 30 days: No Close contact w/someone who was outside of country & ill: No - Past Medical History Allergies/Adverse Reactions: Allergies Allergy/AdvReac Type Severity Reaction Status Date / Time shellfish derived Allergy Verified 10/23/18 14:42 Home Medications: Ambulatory Orders Mag Hydrox/Al Hydrox/Simeth [Mylanta Suspension -] 30 ml PO Q6H #1 bottle COPD: No GI Disorders: Yes HTN: Yes Hypercholesterolemia: Yes Psychiatric Problems: Yes (anxiety) - Immunization History Immunization Up to Date: Yes - Suicide/Smoking/Psychosocial Hx Smoking History: Never smoked Have you smoked in the past 12 months: No Hx Alcohol Use: No Drug/Substance Use Hx: No Substance Use Type: None Review of Systems - Review of Systems Is the patient limited Cam[place]onian proficient: No Constitutional: No: Chills, Fever Cardiac (ROS): No: Chest Pain ABD/GI: No: Abdominal Distended, Abd. Pain w/ defecation, Blood Streaked Bowels , Constipated, Diarrhea, Difficulty Swallowing, Nausea, Poor Appetite, Poor Fluid Intake, Vomiting, Abdominal cramping : Yes: Flank Pain (R flank). No: Dysuria, Frequency, Hematuria, Incontinence , Urgency *Physical Exam - Vital Signs Last Vital Signs Temp Pulse Resp BP Pulse Ox 98.4 F 100 H 20 140/87 98 10/23/18 14:39 10/23/18 14:39 10/23/18 14:39 10/23/18 14:39 10/23/18 14:39 - Physical Exam General Appearance: Yes: Nourished Respiratory/Chest: positive: Lungs Clear, Normal Breath Sounds Cardiovascular: positive: Regular Rhythm, Regular Rate, S1, S2 Gastrointestinal/Abdominal: positive: Normal Bowel Sounds, Soft Musculoskeletal: positive: Normal Inspection Extremity: positive: Normal Inspection Integumentary: positive: Normal Color. negative: Rash Neurologic: positive: senior software development engineer II-XII NML intact, Fully Oriented, Alert Moderate Sedation - Procedure Monitoring Vital Signs: Procedure Monitoring Vital Signs Temperature 98.4 F 10/23/18 14:39 Pulse Rate 100 H 10/23/18 14:39 Respiratory Rate 20 10/23/18 14:39 Blood Pressure 140/87 10/23/18 14:39 O2 Sat by Pulse Oximetry (%) 98 10/23/18 14:39 Medical Decision Making - Medical Decision Making 63y/o F with chronic R flank pain X 3 wks, she was seen in the ED on Wednesday for right upper abd pain radiating to the R flank, workup included a sono which was neg for gallstones/cholecystisis, GI appt recommended. . Pt reports abd pain has since improved, she is here with R flank pain, denies trauma, h/o renal stones, f/c, or UTI sx exam--no CVA tenderness or rash doubt renal stone given lenght of complaint UA tordal dispo pending 10/23/18 15:13 10/23/18 15:45 pt reassess, felt much better, admits to ongoing PT for lower back pain, requesting CXR denies cough, URI sx or rash 10/23/18 16:27 prelim xray neg pt felt much better after toradol, she admits she was given Rx for muscle relaxant but afraid of addiction she will f/u with pain management doctor re: reassessment given she has been in PT X 10wks for back pain *DC/Admit/Observation/Transfer Diagnosis at time of Disposition: Flank pain - Discharge Dispostion Disposition: HOME Condition at time of disposition: Stable Decision to Admit order: No - Referrals Referrals: Jalyn Parrish [Primary Care Provider] - 24 hours - Patient Instructions Printed Discharge Instructions: DI for Flank Pain Additional Instructions: Please come directly to the Emergency Department if worsening symptoms occurs - Post Discharge Activity
[2018-10-23 15:33] LABS: URINE APPEARANCE CLEAR; URINE BILIRUBIN NEGATIVE (<2.0 mg/dL); URINE COLOR LTYELLOW; URINE GLUCOSE (UA) NEGATIVE (NEGATIVE); URINE KETONE TRACE (NEGATIVE); URINE LEUK ESTERASE NEGATIVE (NEGATIVE); URINE NITRITE NEGATIVE (NEGATIVE); URINE PROTEIN NEGATIVE (NEGATIVE); URINE UROBILINOGEN NEGATIVE mg/dL (0.2-1.0)
[2018-10-23 16:36] VITALS: BP 127/78
== END 2018-10-23 16:33 | disposition home or self-care (01) ==
LOC: JERFT 14:33
PROC: 3E0233Z Introduction of Anti-inflammatory into Muscle, Percutaneous Approach (ICD-10-PCS; principal; 2018-10-23)
DX: R10.31 Right lower quadrant pain (principal)
CPT/HCPCS: 71046-TC-FY; 81003; 96372; 99281-25